=== PATIENT | female | born 1980 | race Caucasian/White ===

== ENCOUNTER → 2019-02-20 17:00 | Outpatient (ROUT) | payer OTHER, SELFPAY ==
[2019-02-20 17:10] LABS: Add Manual Diff / Slide Review NO; Basophils Absolute Auto 100 /uL (0-100); Basophils Percent Auto 0.8 % (0-2); Eosinophils Absolute Auto 0 /uL (0-450); Eosinophils Percent Auto 0.3 % (2-4); Hematocrit 40.1 % (36-46); Hemoglobin 13.8 g/dL (12.0-16.0); Lymphocytes Absolute Auto 1200 /uL (1100-4500); Lymphocytes Percent Auto 16.2 % (25-40); Mean Corpuscular HGB Conc 34.4 % (30-36); Monocytes Absolute Auto 400 /uL (0-900); Monocytes Percent Auto 5.6 % (3-14); Neutrophils Absolute Auto 5500 /uL (1500-7000); Neutrophils Percent Auto 77.1 % (50-75); Platelet Count 175 X10^3/uL (150-400); Red Blood Cell Count 4.31 X10^6/uL (4.0-5.2); Red Cell Distribution Width 13.6 % (11.6-14.8); White Blood Cell Count 7.2 X10^3/uL (4.5-11.0)
[2019-02-20 17:25] LABS: Alanine Aminotransferase 19 IU/L (9-52); Albumin 4.6 g/dL (3.5-5.0); Albumin Globulin Ratio 1.9 (1.0-2.8); Alkaline Phosphatase 83 U/L (38-126); Aspartate Aminotransferase 31 IU/L (14-36); BUN Creatinine Ratio 22.5 (6-22); Bilirubin Total 0.5 mg/dL (0.2-1.3); Blood Urea Nitrogen 18 mg/dL (7-17); Calcium 9.5 mg/dL (8.4-10.2); Carbon Dioxide 27 mmol/L (22-32); Chloride 103 mmol/L (98-107); Estimated Glomerular Filt Rate > 60.0 mL/min (>60); Globulin 2.4 g/dL (1.7-4.1); Glucose 81 mg/dL (70-100); HEMOLYSIS < 15 (0-50); Potassium 3.9 mmol/L (3.4-5.1); Sodium 142 mmol/L (137-145)
[2019-02-20 17:40] LABS: Vitamin D 25 Hydroxy (D3) 40.7 ng/mL (30.0-100.0)
[2019-02-20 17:55] LABS: Thyroid Stimulating Hormone 2.13 uIU/mL (0.47-4.68)
[2019-02-20 17:56] LABS: B Type Natriuretic Peptide < 100 (<100)
[2019-02-20 18:13] LABS: Vitamin B12 269 pg/mL (239-931)
== END ==
PROVIDERS: Visit Provider Physician Assistant
DX: R60.9 Edema, unspecified (principal); R00.2 Palpitations; E55.9 Vitamin D deficiency, unspecified
CPT/HCPCS: 80053; 82306; 82607; 83880; 84443; 85025

== ENCOUNTER → 2019-03-05 15:39 | Outpatient (CLI) | payer OTHER, SELFPAY ==
--- NOTE | 2019-03-05 | DI.ECHO.S_ITS ---
[facility] +---------+ : : [address] : [address] : : : : [id number] : : : : Phone: [phone]+ Echocardiogram Report + + :Name: MARI LEWIS Study Date: 03/05/2019 Height: 65 in : :[facility] Weight: 128 lb: : Gender: Female BSA: 1.6 m2 : :: 1980 Age: 38 yrs BP: 90/52 mmHg: :Reason For Study: PALPITATIONS : : Performed By: Laci Mckay : :Referring: ELIANE MARTINEZ : + + Interpretation Summary The ejection fraction is estimated to be 60-65%. There is mild tricuspid regurgitation. The right ventricular systolic pressure is estimated to be at least 27 mmHg based on an estimated right atrial pressure of 8 mm Hg. The IVC is dilated (diameter is greater than 2.1 cm) yet it collapses greater than 50% with a sniff. This suggests a right atrial pressure of 8 mm Hg. Procedure: A two-dimensional transthoracic echocardiogram with color flow and Doppler was performed. The study quality was technically difficult. There is no prior echocardiogram noted for this patient. The patient was in normal sinus rhythm during the exam. The patient had occasional PACs during the exam. Left Ventricle: The left ventricle is normal in size. There is normal left ventricular wall thickness. The ejection fraction is estimated to be 60-65%. There are no focal wall motion abnormalities. Right Ventricle: The right ventricle is normal in size and function. Atria: The left atrium is mildly dilated. Right atrial size is normal. The interatrial septum is intact with no evidence for an atrial septal defect. Mitral Valve: The mitral valve is normal in structure and function. There is trace mitral regurgitation. Aortic Valve: The aortic valve is trileaflet. The aortic valve opens well. No aortic regurgitation is present. Tricuspid Valve: The tricuspid valve is normal in structure and function. There is mild tricuspid regurgitation. The right ventricular systolic pressure is estimated to be at least 27 mmHg based on an estimated right atrial pressure of 8 mm Hg. Pulmonic Valve: The pulmonic valve is not well visualized. Great Vessels: The aortic root is normal size. The dimensions of the ascending aorta are normal. The pulmonary artery is normal size. The IVC is dilated (diameter is greater than 2.1 cm) yet it collapses greater than 50% with a sniff. This suggests a right atrial pressure of 8 mm Hg. Pericardium/ Pleura There is no pericardial effusion. There is no pleural effusion. MMode/2D Measurements & Calculations LVIDd: 4.3 cm LVOT diam: 1.9 cm LVIDs: 3.2 cm Ao root diam: 3.2 cm FS: 26.2 % asc Aorta Diam: 2.8 cm EPSS: 0.53 cm Ao Arch Diam (Prox Trans): 1.6 cm IVSd: 0.67 cm LVPWd: 0.65 cm LV sarabia. diameter/BSA (cm/m^2): 2.6 LV sys. diameter/BSA (cm/m^2): 2.0 LA dimension: 2.7 cm RA long axis: 4.6 cm LA A2 area: 19.2 cm2 RA area: 13.9 cm2 LA A4 area: 19.6 cm2 RA vol: 36.0 ml LA length (vol): 5.3 cm RA : 22.0 ml/m2 LA vol: 60.5 ml IVC diam: 2.2 cm LA vol index: 36.9 ml/m2 Doppler Measurements & Calculations Ao V2 max: 105.8 cm/sec LVOT Max Morris: 83.7 cm/sec Ao V2 mean: 77.6 cm/sec LV V1 max P.8 mmHg Ao max P.5 mmHg LV V1 VTI: 19.6 cm Ao mean P.6 mmHg OVIDIO(I,D): 2.2 cm2 Ao V2 VTI: 24.1 cm OVIDIO(V,D): 2.2 cm2 sev ratio: 0.81 OVIDIO indexed to BSA (cm^2/m^2): 1.4 MV E max morris: 70.4 cm/sec TR max morris: 220.5 cm/sec MV A max morris: 34.6 cm/sec TR max P.4 mmHg MV E/A: 2.0 PA V2 max: 67.3 cm/sec Med Peak E' Morris: 10.3 cm/sec PA V2 mean: 49.7 cm/sec E/E' med: 6.8 PA mean P.1 mmHg Lat Peak E' Morris: 10.5 cm/sec PA pr(Accel): 26.6 mmHg E/E' lat: 6.7 PA Accel Time: 0.09 sec E/e' average: 6.8 MV dec time: 0.17 sec SV(LVOT): 54.2 ml Reading Physician:05:07 PM
== END ==
PROVIDERS: Visit Provider Physician Assistant
DX: I07.1 Rheumatic tricuspid insufficiency (principal); R00.2 Palpitations
CPT/HCPCS: 93306

== ENCOUNTER → 2019-03-16 12:42 | Outpatient (CLI) | payer OTHER, SELFPAY ==
[2019-03-16 13:21] LABS: Lactate (Lactic Acid) 0.9 mmol/L (0.7-2.1)
== END ==
PROVIDERS: PCP Physician Assistant; Visit Provider Physician Assistant
DX: E51.9 Thiamine deficiency, unspecified (principal)
CPT/HCPCS: 36415; 83605; 84425

== ENCOUNTER → 2019-03-19 12:48 | Outpatient (CLI) | payer OTHER, SELFPAY | PROVIDERS: PCP Physician Assistant; Visit Provider Physician Assistant | DX: E51.9 Thiamine deficiency, unspecified (principal) | CPT/HCPCS: 36415; 84210 ==

== ENCOUNTER 2019-04-15 15:17 | Emergency (ER) | payer OTHER, SELFPAY ==
[2019-04-15 15:19] VITALS: BP 109/61; PULSE 56; RESP 14; TEMP 36.9; O2SAT 100
--- NOTE | 2019-04-15 16:55 | ED_ITS ---
HPI - Head Injury General Chief complaint: Head Injury Stated complaint: neck pain s/p fall on Saturday Time Seen by Provider: 04/15/19 16:30 Source: patient and family Mode of arrival: ambulatory Limitations: no limitations History of Present Illness HPI Narrative: 38-year-old female nonsmoker with benign medical history presents with headache and other concussion symptoms after hitting her head few days ago. The patient was working out and stepping up onto a box about 6 in off the ground when she fell and struck her head. She did suffer a brief loss of consciousness but quickly came to. In the aftermath she has had some headaches and felt a bit groggy, like prior concussions. She does not use alcohol or street drugs and denies the use of blood thinners. She has had no vomiting and denies any neurologic symptoms. She does have some pain on the left side of her neck which is worse with motion improves with rest. She denies any numbness, tingling or weakness. She denies any suggestion of a distracting injury. MD Complaint: head injury Onset (ago): day(s) Mechanism of Injury: fall Place: other Loss of Consciousness: yes Location of injury: parietal Severity: mild Quality: aching Radiation: none Other Injuries: none Associated symptoms: confusion and neck pain Related Data Previous Rx's Medication Instructions Recorded ketorolac 10 mg PO Q6H PRN #14 tab 04/15/19 Allergies Allergy/AdvReac Type Severity Reaction Status Date / Time spironolactone Allergy Verified 04/15/19 15:23 Review of Systems Constitutional Constitutional: Denies chills, Denies fatigue, Denies fever(s), Denies frequent falls, Reports headache(s), Denies lethargy and Denies weakness Eyes Eyes: Denies change in vision, Denies eye discharge, Denies irritation and Denies loss of vision ENT Ears, Nose, Mouth, and Throat: Denies change in voice, Denies dizziness, Reports headache(s), Reports neck pain, Denies sore throat and Denies throat swelling Cardiovascular Cardiovascular: Denies chest pain, Denies irregular heart rhythm, Denies lightheadedness, Denies palpitations, Denies dyspnea, Denies dyspnea on exertion and Denies orthopnea Respiratory Respiratory: Denies cough, Denies dyspnea, Denies dyspnea on exertion and Denies wheezing Gastrointestinal Gastrointestinal: Denies abdominal pain, Denies change in bowel habits, Denies diarrhea, Denies nausea and Denies vomiting Genitourinary Genitourinary: Denies hematuria, Denies flank pain, Denies urinary incontinence and Denies urinary urgency Musculoskeletal Musculoskeletal: Denies back pain, Denies muscle weakness, Reports neck pain, Denies numbness and Denies tingling Integumentary/Breasts Skin/Breast: Denies pruritus, Denies erythema, Denies rash and Denies wounds Neurologic Neurologic: Denies behavioral changes, Denies confusion, Denies dizziness, Denies frequent falls, Reports headache(s), Denies loss of vision, Denies numbness, Denies tingling and Denies weakness Psychiatric Psychiatric: Denies anxiety, Denies behavioral changes, Denies confusion, Denies depression, Denies homicidal ideation and Denies suicidal ideation Endocrine Endocrine: Denies fatigue, Denies flushing and Denies palpitations Hematologic/Lymphatic Hematologic/Lymphatic: Denies easy bruising Allergic/Immunologic Allergic/Immunologic: Denies urticaria, Denies throat swelling and Denies wheezing Exam Narrative Exam Narrative: GENERAL: [38] year old patient appears stated age. Well- nourished, well-developed patient, in mild distress. GCS 15 HEAD: Atraumatic. Normocephalic. EYES: Pupils equal round and reactive. Extraocular motions intact. No scleral icterus. No injection or drainage. ENT: Nose without bleeding, purulent drainage. Throat without erythema, tonsillar hypertrophy or exudate. Airway patent. NECK: Trachea midline. Tender in the paraspinal muscles on the left side her neck. No bony tenderness or step-off. CARDIOVASCULAR: Regular rate and rhythm without murmurs, gallops, or rubs. RESPIRATORY: Clear to auscultation. Breath sounds equal bilaterally. No wheezes, rales, or rhonchi. GASTROINTESTINAL: Abdomen soft, non-tender, nondistended. EXTREMITIES: Full but slightly painful range of motion of the left shoulder. No numbness, tingling or weakness. BACK: Nontender without deformity or crepitance. No flank tenderness. NEURO: AOx3. SKIN: No rash or erythema of visible areas Initial Vital Signs Initial Vital Signs: Vital Signs Temperature 98.4 F 04/15/19 15:19 Pulse Rate 56 L 04/15/19 15:19 Respiratory Rate 14 04/15/19 15:19 Blood Pressure 109/61 04/15/19 15:19 Pulse Oximetry 100 04/15/19 15:19 Scores Nexus Score for C-Spine Focal Neurologic deficit present: No Midline spinal tenderness present: No Altered level of conciousness present: No Intoxication present: No Distracting Injury Present: No Nexus Criteria for C-spine: 0 Course Course Course Narrative: [place] CT Head Injury/Trauma Rule from [employer] on 04/17/2019 All calculations should be rechecked by clinician prior to use RESULT SUMMARY: CT Unnecessary The [place] Head CT Rule suggests a head CT is not necessary for this patient (sensitivity 83-100% for all intracranial traumatic findings, sensitivity 100% for findings requiring neurosurgical intervention). INPUTS: Age ?> 0 = No Patient on blood thinners ?> 0 = No Seizure after injury ?> 0 = No GCS ?> 0 = No Suspected open or depressed skull fracture ?> 0 = No Any sign of basilar skull fracture? ?> 0 = No ?2 episodes of vomiting ?> 0 = No Age ?65 years ?> 0 = No Retrograde amnesia to the event ? 30 minutes ?> 0 = No ?Dangerous? mechanism? ?> 0 = No Vital Signs Vital signs: Vital Signs - 8 hr 04/15/19 15:19 Temperature 98.4 F Pulse Rate 56 L Respiratory Rate 14 Blood Pressure 109/61 Pulse Oximetry 100 MDM - Head Injury MDM Narrative Medical decision making narrative: Patient suffered head injury from ground level with a brief loss of consciousness and has ongoing symptoms consistent with concussion. There is no indication for imaging of head or neck based on widely use scoring system such as the [place] head CT, and nexus rules. Extensive discussion with the patient including return precautions and we had the ability to address all concerns and patients are answered to her apparent satisfaction. Discharge Plan Departure Patient Disposition: Home Clinical Impression: Cervical paraspinal muscle spasm Closed head injury Qualifiers: Encounter type: initial encounter Qualified Code(s): S09.90XA - Unspecified injury of head, initial encounter Left shoulder strain Qualifiers: Encounter type: initial encounter Qualified Code(s): S46.912A - Strain of unspecified muscle, fascia and tendon at shoulder and upper arm level, left arm, initial encounter Discharge Date/Time: 04/15/19 17:55 Instructions: Concussion Activity Restrictions/Additional Instructions: *You have been diagnosed with [concussion, left shoulder contusion and sprain, paraspinal cervical muscle spasm] *What to do: *Take medications as directed *Follow up with your primary care provider in 2-3 days, call for an appointment. Let them know you were seen in the Emergency Department and that we ask that you be seen in follow up *Return to ER if you should have any new, worsening or concerning symptoms Prescriptions: New ketorolac 10 mg tablet 10 mg PO Q6H PRN (Reason: pain) Qty: 14 RF: 0 Referrals: Zeny Ramos PA-C [Primary Care Provider] -
[2019-04-15 17:55] VITALS: BP 115/70; PULSE 55; RESP 16; O2SAT 100
== END 2019-04-15 17:55 | disposition home or self-care (01) ==
PROVIDERS: Emergency Provider Emergency Medicine; Family Provider Physician Assistant; PCP Physician Assistant
DX: M62.838 Other muscle spasm (principal); S09.90XA Unspecified injury of head, initial encounter; S46.912A Strain of unspecified muscle, fascia and tendon at shoulder and upper arm level, left arm, initial encounter; W18.30XA Fall on same level, unspecified, initial encounter
CPT/HCPCS: 99282

== ENCOUNTER → 2019-09-03 09:23 | Outpatient (CLI) | payer OTHER, SELFPAY | PROVIDERS: Family Provider Physician Assistant; PCP Physician Assistant; Referring Provider Physician Assistant; Visit Provider Physician Assistant | DX: M85.851 Other specified disorders of bone density and structure, right thigh (principal) | CPT/HCPCS: 77080 ==

== ENCOUNTER → 2019-12-30 18:41 | Outpatient (CLI) | payer OTHER, SELFPAY ==
--- NOTE | 2019-12-30 | DI.MRI.S_ITS ---
PROCEDURE: MR ANKLE LT WO CON INDICATIONS: Pain in left ankle and joints of left foot TECHNIQUE: Noncontrast sagittal T1 spin echo and T2 fast spin echo with fat saturation, axial proton density fast spin echo and T2 fast spin echo with fat saturation, coronal T1 spin echo and T2 fast spin echo with fat saturation through the ankle/hindfoot. COMPARISON: None. FINDINGS: Image quality: Excellent. Bones and joints: No bone marrow contusions or fractures. No hindfoot coalitions. No osteochondral injuries of the talar dome. No pathologic joint effusions. Medial structures: The posterior tibialis, flexor digitorum longus, and flexor hallucis longus tendons are intact. The posterior tibial neurovascular bundle appears normal within the tarsal tunnel, without extrinsic mass effect. The deep layer (anterior and posterior tibiotalar ligaments) and superficial layer (tibionavicular, tibiospring, and tibiocalcaneal ligaments) of the deltoid ligament appear normal. The spring ligament components (superomedial calcaneonavicular, medioplantar oblique calcaneonavicular, and inferoplantar longitudinal ligaments) are intact. Lateral structures: There is low-grade anterior talofibular ligament sprain/intrasubstance partial thickness tear. The calcaneofibular, and posterior talofibular ligaments appear intact. More superiorly, the anterior and posterior tibiofibular ligaments appear intact, as is the intermalleolar ligament. The tibiofibular syndesmosis is normal in width at 2 mm or less. The peroneus longus and brevis tendons demonstrate normal location and morphology. Adjacent bony peroneal tubercle and retrotrochlear prominence are normal in size. The sinus tarsi demonstrates normal fatty signal, without edema, fibrosis, or cyst formation. Visualized sinus tarsi components (cervical ligament, interosseous talocalcaneal ligament, roots of the inferior extensor retinaculum) appear normal. The calcaneonavicular and calcaneocuboid components of the bifurcate ligament appear intact. The dorsal calcaneocuboid ligament appears intact. Anterior structures: The tibialis anterior, and extensor hallucis longus tendons appear intact. Attenuated appearance of extensor digitorum longus tendon at the level of tibiotalar joint/anterior talus is seen with moderate amount of fluid distending the tendon sheath suggestive of partial thickness tendon tear and tenosynovitis. The dorsal talonavicular ligament appears intact. Posterior and plantar structures: Mildly thickened distal Achilles tendon near its insertion on the posterior calcaneus with mild surrounding edema is seen suggestive of low-grade tendinosis. No full thickness Achilles tendon rupture. Medial and lateral bands of the plantar fascia are of normal thickness. No abductor digiti quinti muscle atrophy to suggest Alberto neuropathy. IMPRESSION: 1. No marrow edema. No fracture or dislocation. No evidence of osteochondral lesions. 2. Tenosynovitis and low to moderate grade partial-thickness tear involving extensor digitorum longus tendon at the level of tibiotalar joint and anterior talus. No other tendon pathology is seen. 3. Sprain/low-grade partial-thickness tear involving anterior talofibular ligament. 4. Suggestion of mild tendinosis involving the distal Achilles tendon near its insertion on the posterior calcaneus. Dictated by: Schuyler Miramontes M.D. on 12/31/2019 at 9:31 Approved by: Schuyler Miramontes M.D. on 12/31/2019 at 9:37
== END ==
PROVIDERS: Family Provider Physician Assistant; PCP Physician Assistant; Referring Provider Orthopaedic Surgery Foot and Ankle Surgery; Visit Provider Orthopaedic Surgery Foot and Ankle Surgery
DX: M25.572 Pain in left ankle and joints of left foot (principal); M65.872 Other synovitis and tenosynovitis, left ankle and foot; S93.492A Sprain of other ligament of left ankle, initial encounter
CPT/HCPCS: 73721

== ENCOUNTER → 2020-01-18 17:57 | Outpatient (CLI) | payer OTHER, SELFPAY ==
--- NOTE | 2020-01-18 | DI.MRI.S_ITS ---
PROCEDURE: MR KNEE RT WO CON INDICATIONS: Pain in right knee TECHNIQUE: Noncontrast sagittal PD fast spin echo and T2 fast spin echo with fat saturation, sagittal 3-D FLASH with fat saturation; coronal T1 spin echo and PD fast spin echo with fat saturation, and axial PD fast spin echo with fat saturation through the knee. COMPARISON: [facility] [place], CR, XR KNEE ARTHRITIC SERIES RT, 12/17/2019, 10:09. FINDINGS: Image quality: Excellent. Menisci: Medial meniscus intact. Lateral meniscus intact. Cruciate ligaments: Anterior cruciate ligament appears intact. Posterior cruciate ligament appears intact. Medial structures: The medial collateral ligament appears intact. Semimembranosus tendon appears intact. Visualized portions of the pes anserinus tendons appear normal. Mild pes anserinus bursitis. Lateral structures: The lateral collateral ligament intact. Biceps femoris tendon appears intact. Popliteus tendon grossly unremarkable. Iliotibial band appears intact, although there is underlying edema and fluid. Anterior structures: Quadriceps tendon is thickened with T2 hyperintensity/edema. Mild thickening of the medial and lateral patellofemoral ligament and retinaculum, with adjacent soft tissue edema There is mild fluid in the deep infrapatellar recess, raising possibility of low-grade bursitis. Patellar tendon appears intact. Hoffa's fat pad unremarkable. Bones and cartilage: Mild marrow edema within the inferior patella. No discrete fracture line seen. Within the medial compartment, no focal cartilage defect. Within the lateral compartment, no focal cartilage defect. Within the patellofemoral compartment, full-thickness 1 mm cartilage defect overlying the lateral patellar facet. There is mild associated subchondral marrow edema. Elsewhere, there is diffuse surface fraying of the patellar cartilage. Femoral trochlear cartilage appears grossly intact. Joint space: Small joint effusion. No formed Baron's cyst although there is trace fluid between the semimembranosus and medial gastrocnemius tendons raising possibility of ruptured Baron cyst. No specific evidence of intra-articular loose body. IMPRESSION: Quadriceps and patellar tendinopathy, age-indeterminate. Additionally, mild thickening of the medial and lateral patellofemoral ligaments and retinaculum. Mild patellofemoral chondromalacia Small joint effusion Mild pes anserinus bursitis. Possible mild residua of ruptured Baron's cyst. Underlying fluid edema to the iliotibial band raising the possibility of iliotibial band friction syndrome although technically indeterminate. Please correlate to clinical exam findings Marrow edema within the patella, possibly marrow contusion versus reactive to chondral changes described above. Dictated by: Don Lan M.D. on 01/19/2020 at 9:33 Approved by: Don Lan M.D. on 01/19/2020 at 9:50
== END ==
PROVIDERS: Family Provider Physician Assistant; PCP Physician Assistant; Referring Provider Orthopaedic Surgery Foot and Ankle Surgery; Visit Provider Orthopaedic Surgery Foot and Ankle Surgery
DX: M25.561 Pain in right knee (principal); M25.461 Effusion, right knee; M22.41 Chondromalacia patellae, right knee; M71.561 Other bursitis, not elsewhere classified, right knee
CPT/HCPCS: 73721

== ENCOUNTER → 2020-11-14 07:01 | Outpatient (CLI) | payer OTHER, SELFPAY ==
[2020-11-14 07:52] LABS: Hematocrit 40.5 % (36-46); Hemoglobin 13.9 g/dL (12.0-16.0); Mean Corpuscular HGB Conc 34.4 % (30-36); Mean Corpuscular Hemoglobin 33.9 PG (26-34); Mean Corpuscular Volume 98.6 fL (80-100); Platelet Count 131 X10^3/uL (150-400); Red Blood Cell Count 4.11 X10^6/uL (4.0-5.2); Red Cell Distribution Width 13.1 % (11.6-14.8); White Blood Cell Count 3.2 X10^3/uL (4.5-11.0)
[2020-11-14 08:32] LABS: Follicle Stimulating Hormone 9.58 mIU/mL; Luteinizing Hormone 7.57 mIU/mL
[2020-11-14 08:36] LABS: Alanine Aminotransferase 19 IU/L (<35); Albumin 4.7 g/dL (3.5-5.0); Alkaline Phosphatase 96 U/L (38-126); Aspartate Aminotransferase 46 IU/L (14-36); BUN Creatinine Ratio 23.4 (6-22); Bilirubin Total 0.1 mg/dL (0.2-1.3); Blood Urea Nitrogen 18 mg/dL (7-17); Calcium 9.8 mg/dL (8.4-10.2); Carbon Dioxide 27 mmol/L (22-32); Chloride 104 mmol/L (98-107); Estimated Glomerular Filt Rate > 60.0 mL/min (>60); Globulin 2.4 g/dL (1.7-4.1); Glucose 82 mg/dL (70-100); HEMOLYSIS < 15 (0-50); Potassium 4.2 mmol/L (3.4-5.1); Sodium 138 mmol/L (137-145); Total Protein 7.1 g/dL (6.3-8.2)
[2020-11-14 08:58] LABS: Prolactin 13.6 ng/mL (3.0-18.6)
[2020-11-14 09:11] LABS: TSH w/ Reflex to FT4 4.45 uIU/mL (0.47-4.68)
[2020-11-14 09:14] LABS: Testosterone 43.3 ng/dL (5.71-77.0)
== END ==
PROVIDERS: Family Provider Physician Assistant; PCP Registered Nurse Diabetes Educator; Referring Provider Registered Nurse Diabetes Educator; Visit Provider Registered Nurse Diabetes Educator
DX: N91.2 Amenorrhea, unspecified (principal); R60.9 Edema, unspecified; R74.8 Abnormal levels of other serum enzymes
CPT/HCPCS: 36415; 80053; 82627; 82670; 83001; 83002; 83498; 84146; 84403; 84443; 85027

== ENCOUNTER → 2020-12-07 17:09 | Outpatient (CLI) | payer OTHER, SELFPAY ==
--- NOTE | 2020-12-07 17:12 | DI.MG.S_ITS ---
BILATERAL DIGITAL SCREENING MAMMOGRAM 3D/2D WITH CAD: 12/07/2020 CLINICAL: Routine screening. Baseline exam. No prior exams were available for comparison. The tissue of both breasts is extremely dense, which lowers the sensitivity of mammography. Current study was also evaluated with a Computer Aided Detection (CAD) system. There are segmental fine punctate calcifications in the right breast lower inner quadrant middle depth. No other significant masses, calcifications, or other findings are seen in either breast. IMPRESSION: INCOMPLETE: NEEDS ADDITIONAL IMAGING EVALUATION The segmental fine punctate calcifications in the right breast are indeterminate. Mediolateral, spot magnification, and additional views are recommended. This exam was interpreted at Station ID: [id number]. NOTE: For mammograms, a report in lay terms will be sent to the patient. Approximately 15% of breast malignancies will not be visualized mammographically. In the management of a palpable breast mass, a negative mammogram must not discourage biopsy of a clinically suspicious lesion. Electronically Signed By: Marcel Celestin M.D. ddp/:12/08/2020 07:37:06 letter sent: Additional Imaging Needed ACR BI-RADS Category 0: Incomplete [id number]
== END ==
PROVIDERS: Family Provider Physician Assistant; PCP Registered Nurse Diabetes Educator; Referring Provider Registered Nurse Diabetes Educator; Visit Provider Registered Nurse Diabetes Educator
DX: Z12.31 Encounter for screening mammogram for malignant neoplasm of breast (principal)
CPT/HCPCS: 77063; 77067

== ENCOUNTER → 2020-12-14 13:41 | Outpatient (CLI) | payer OTHER, SELFPAY ==
[2020-12-14 15:38] LABS: Erythrocyte Sedimentation Rate 4 MM/HR (0-20)
[2020-12-14 15:39] LABS: HEMOLYSIS < 15 (0-50); Iron 77 ug/dL (37-170)
[2020-12-14 15:51] LABS: Percent Iron Saturation 18 % (15-50); Total Iron Binding Capacity 427 ug/dL (265-497); Transferrin 338 mg/dL (206-381)
[2020-12-14 15:53] LABS: C-Reactive Protein Quant < 0.5 mg/dL (<1.0)
[2020-12-14 16:18] LABS: Ferritin 13 ng/mL (6-137)
[2020-12-15 04:58] LABS: Alpha 1 Anti Trypsin 127 mg/dL (100-188)
[2020-12-15 07:04] LABS: Hepatitis B Core AB w/Reflex Negative (Negative)
[2020-12-15 16:33] LABS: Hepatitis B Surface Antigen NEGATIVE s/c (NEGATIVE)
[2020-12-15 16:43] LABS: Hep C Virus Ab w/Reflex Quant NEGATIVE s/c (NEGATIVE)
[2020-12-15 19:36] LABS: Deamidated Gliadin Ab IgA 3 units (0-19); Deamidated Gliadin Ab IgG 2 units (0-19); Immunoglobulin A,Qn 137 mg/dL (87-352); t-Transglutaminase IgA <2 U/mL (0-3)
[2020-12-16 13:15] LABS: Smooth Muscle Antibody 4 Units (0-19)
[2020-12-16 13:36] LABS: ANA Screen, IFA Negative (.)
== END ==
PROVIDERS: Family Provider Physician Assistant; PCP Registered Nurse Diabetes Educator; Referring Provider Registered Nurse Diabetes Educator; Visit Provider Registered Nurse Diabetes Educator
DX: D69.6 Thrombocytopenia, unspecified (principal); R74.8 Abnormal levels of other serum enzymes; M79.645 Pain in left finger(s)
CPT/HCPCS: 36415; 82103; 82390; 82728; 82784; 83516; 83540; 83550; 85651; 86038; 86140; 86704; 86803; 87340

== ENCOUNTER → 2020-12-23 14:09 | Outpatient (CLI) | payer OTHER, SELFPAY ==
--- NOTE | 2020-12-23 | DI.MG.S_ITS ---
UNILATERAL RIGHT DIGITAL DIAGNOSTIC MAMMOGRAM 3D/2D WITH ADDITIONAL VIEWS: 12/23/2020 CLINICAL: Additional evaluation requested from prior study. Comparison is made to exam dated: 12/07/2020 [facility]. The tissue of right breast is extremely dense, which lowers the sensitivity of mammography. There are 1.1 cm grouped fine punctate calcifications in the right breast at 5 o'clock middle depth. No other significant masses or calcifications are seen in the breast. IMPRESSION: SUSPICIOUS OF MALIGNANCY The 1.1 cm grouped fine punctate calcifications in the right breast are at a moderate suspicion for malignancy. A stereotactic biopsy is recommended. Exam findings were discussed with the patient by Dr. Anival Armenta. This exam was interpreted at Station ID: [id number]. NOTE: For mammograms, a report in lay terms will be sent to the patient. Approximately 15% of breast malignancies will not be visualized mammographically. In the management of a palpable breast mass, a negative mammogram must not discourage biopsy of a clinically suspicious lesion. Electronically Signed By: Anthony James M.D. [facility]/:12/23/2020 14:37:27 letter sent: Biopsy Required ACR BI-RADS Category 4b: Suspicious abnormality - intermediate suspicion of malignancy [id number]
== END ==
PROVIDERS: Family Provider Physician Assistant; PCP Registered Nurse Diabetes Educator; Referring Provider Registered Nurse Diabetes Educator; Visit Provider Registered Nurse Diabetes Educator
DX: R92.8 Other abnormal and inconclusive findings on diagnostic imaging of breast (principal); R92.1 Mammographic calcification found on diagnostic imaging of breast
CPT/HCPCS: 77065; G0279

== ENCOUNTER 2021-01-20 18:28 | Emergency (ER) | payer OTHER, SELFPAY ==
[2021-01-20 18:34] VITALS: BP 121/69; PULSE 53; RESP 14; TEMP 36.4; O2SAT 99; BMI 19.6
[2021-01-20] MEDS: TET,DIPH,PERTUSS(ACELL),VAC/PF 0.5 ML SYRINGE IM (22:53)
[2021-01-20 23:07] VITALS: PULSE 40; RESP 16; O2SAT 100
--- NOTE | 2021-01-20 23:57 | ED.WOUNDLAC ---
HPI - Wound/Laceration General Chief Complaint: Wound/Laceration Stated Complaint: cut finger on left hand Time Seen by Provider: 01/20/21 23:05 Source: patient Mode of arrival: Ambulatory Limitations: no limitations History of Present Illness HPI narrative: 40-year-old female nonsmoker with noncontributory medical history presents with the chief complaint of an accidental laceration to the tip of her Left index finger. She was using a sharp knife preparing vegetables for dinner when it slipped and lacerated the tip of her finger through the nail. It bled a fair amount and cause significant pain prior to arrival. She denies any numbness or tingling. Her tetanus will need to be updated. She is otherwise well and free of complaint Onset (ago): minute(s) Place: home Patient tetanus UTD: No Context: accidental Associated symptoms: none Treatments prior to arrival: bandage Related Data Home Medications Medication Instructions Recorded Confirmed cbd oil PO 11/07/20 01/05/21 Allergies Allergy/AdvReac Type Severity Reaction Status Date / Time spironolactone Allergy Anaphylaxis, Verified 01/20/21 18:36 right side of body falls asleep Review of Systems Constitutional Constitutional: Denies chills, Denies fatigue, Denies fever(s), Denies frequent falls, Denies lethargy and Denies weakness Eyes Eyes: Denies change in vision, Denies eye discharge, Denies irritation and Denies loss of vision ENT Ears, Nose, Mouth, and Throat: Denies change in voice, Denies dizziness, Denies neck pain, Denies sore throat and Denies throat swelling Cardiovascular Cardiovascular: Denies chest pain, Denies irregular heart rhythm, Denies lightheadedness, Denies palpitations, Denies dyspnea, Denies dyspnea on exertion and Denies orthopnea Respiratory Respiratory: Denies cough, Denies dyspnea, Denies dyspnea on exertion and Denies wheezing Gastrointestinal Gastrointestinal: Denies abdominal pain, Denies change in bowel habits, Denies diarrhea, Denies nausea and Denies vomiting Musculoskeletal Musculoskeletal: Denies neck pain and Denies numbness Integumentary/Breasts Skin/Breast: Denies pruritus, Denies erythema, Denies rash and Reports wounds Neurologic Neurologic: Denies behavioral changes, Denies confusion, Denies dizziness, Denies frequent falls, Denies loss of vision, Denies numbness and Denies weakness Psychiatric Psychiatric: Denies anxiety, Denies behavioral changes, Denies confusion, Denies depression, Denies homicidal ideation and Denies suicidal ideation Endocrine Endocrine: Denies fatigue, Denies flushing and Denies palpitations Hematologic/Lymphatic Hematologic/Lymphatic: Denies easy bruising Allergic/Immunologic Allergic/Immunologic: Denies urticaria, Denies throat swelling and Denies wheezing Patient History Medical History Acne (~1994) Amenorrhea (~2013) Ankle pain (~2019) Chicken pox Edema Foot pain (~2009) Fractures (~1988) Gastric ulcer (~2017) GERD (gastroesophageal reflux disease) (~2017) Herniated disc (~2014) Herpes (~1998) Irregular menstrual cycle (~2013) Irritable bowel syndrome (~2014) Osteopenia (~2015) Pituitary adenoma (~2015) Plantar warts (~1998) Vertigo (~2019) Surgical History Anesthesia History of section (~12/20/07) History of colonoscopy History of removal of skin mole (~08/2008) Family History Father Melanoma Mother Autoimmune disease Mental health problem Depression Brother Asthma Sister Mental health problem Eating disorder Anxiety Grandfather History of heart disease Hyperlipidemia Hypertension Mental health problem Grandmother Multiple sclerosis Family/Other ADHD Anxiety Social History Smoking Status: Never smoker Smoking Status: Never smoker alcohol intake frequency: holidays/special occasions only Substance Use Type: does not use Exam Narrative Exam Narrative: GEN: AOx3 and in mild distress EYES: Pupils are equal, round, and reactive to light and accommodation. Extraoccular muscles are intact bilaterally. There is no subconjunctival hemorrhage or exudate. CHEST: Lungs are clear to auscultation bilaterally and free of wheezes, rales, or rhonchi. Heart rate is regular rhythm, there are no murmurs, clicks, rubs, or gallops. There is no chest wall tenderness. ABD: Abdomen is soft and nontender. There is no guarding or rebound. Bowel sounds are normal in all 4 quadrants. There is no mass or organomegaly. EXT: Laceration through the nail of left index finger, no active bleeding, no numbness or tingling. Full painless ROM of all extremities with no loss of sensation or strength. SKIN: Warm, pink, and dry. No erythema or rash Initial Vital Signs Initial Vital Signs: Vital Signs Temperature 97.5 F L 01/20/21 18:34 Pulse Rate 53 L 01/20/21 18:34 Respiratory Rate 14 01/20/21 18:34 Blood Pressure 121/69 01/20/21 18:34 Pulse Oximetry 99 01/20/21 18:34 Course Orders Ordered: Discontinued Medications Diphtheria/Tetanus/Acell Pertussis (Tet,Diph,Pertuss(Acell),Vac/Pf 0.5 Ml Syringe) 0.5 ml IM .ONCE ONE Stop: 01/20/21 18:39 Last Admin: 01/20/21 22:53 Dose: 0.5 ml Documented by: CTRSUSANA Vital Signs Vital signs: Vital Signs - 8 hr 01/20/21 23:07 01/21/21 00:22 Pulse Rate 40 L 40 L Respiratory Rate 16 16 Blood Pressure 93/56 L Pulse Oximetry 100 100 MDM - Wound/Laceration MDM Narrative Medical decision making narrative: laceration is through nail and likely involved the nail bed, it bled earlier but after pressure is no longer bleeding. There is no other need for repair. We discussed at length the lack of indication for suture or nail removal at this point. She has no numbness, tingling or weakness. She has been given return precautions and has had questions answered Discharge Plan Departure Patient Disposition: Home Clinical Impression: Laceration Instructions: DI for Nail Bed Injury Activity Restrictions/Additional Instructions: *You have been diagnosed with [left index finger with nail and nail bed injury, bleeding controlled, no need for repair currently] *What to do: *Please continue to take your regular medications as directed. [ ] New medication prescriptions sent to your pharmacy: [ ] [ ] New medication written as a paper prescription [ x] No new medications given *Please follow up with your primary care provider in 2-3 days, call for an appointment. Let them know you were seen in the Emergency Department and that we ask that you be seen in follow up. We will electronically transmit a record of today's note if your PCP is in our system *If you do not have a primary care provider please contact the [facility] Resource line at [phone]. They will ask some questions about your medical history and help get you set up with a doctor in the community. *Return to Emergency Department if you should have any new, worsening or concerning symptoms, such as [fever greater than 101 F, shaking chills, worsening pain, recurrence of heavy bleeding or other bothersome symptoms Prescriptions: No Action cbd oil PO RF: 0 Referrals: Prince Wheeler ARNP [Primary Care Provider] -
[2021-01-21 00:22] VITALS: BP 93/56; PULSE 40; RESP 16; O2SAT 100
== END 2021-01-21 00:23 | disposition home or self-care (01) ==
PROVIDERS: Emergency Provider Emergency Medicine; Family Provider Physician Assistant; PCP Registered Nurse Diabetes Educator
DX: S61.211A Laceration without foreign body of left index finger without damage to nail, initial encounter (principal); W26.0XXA Contact with knife, initial encounter; Z23 Encounter for immunization
CPT/HCPCS: 90471; 99283; 90715

== ENCOUNTER 2021-03-24 15:15 | Emergency (ER) | payer OTHER, SELFPAY ==
[2021-03-24 15:19] VITALS: BP 131/69; PULSE 46; RESP 14; TEMP 36.6; O2SAT 100; BMI 19.3
--- NOTE | 2021-03-24 15:28 | DI.RAD.S_ITS ---
PROCEDURE: XR FOOT RT MIN 3V INDICATIONS: Stubbed 4th toe right foot, also having top of foot pain TECHNIQUE: 3 views of the foot were acquired. COMPARISON: None. FINDINGS: Bones: No fractures or dislocations. No suspicious bony lesions. Soft tissues: No tibiotalar joint effusion. Achilles tendon appears normal. IMPRESSION: Source of pain after trauma is not seen. Mild soft tissue swelling 4th distal phalanx area. Dictated by: Anival Armenta M.D. on 03/24/2021 at 15:56 Approved by: Anival Armenta M.D. on 03/24/2021 at 15:57
--- NOTE | 2021-03-24 17:01 | ED_ITS ---
HPI - Extremity Injury (Lower) <Kali Saunders PA-C - Last Filed: 03/25/21 12:18> General Chief Complaint: Extremity Injury, Lower Stated Complaint: Stubbed Rt Toe Time Seen by Provider: 03/24/21 16:48 Source: patient Mode of arrival: Ambulatory Limitations: no limitations History of Present Illness HPI Narrative: Tahmina presents today with chief complaint toe pain on her right foot. She was exercising earlier today and dropped a dumbbell directly onto her foot. She has had significant pain with any weight-bearing activity since then and notes that it has started to get swollen and bruised. She denies any other previous injuries to the area. She has no other acute concerns or complaints at this time Related Data Home Medications Medication Instructions Recorded Confirmed cbd oil PO 11/07/20 01/05/21 Allergies Allergy/AdvReac Type Severity Reaction Status Date / Time spironolactone Allergy Anaphylaxis, Verified 01/20/21 18:36 right side of body falls asleep Review of Systems <Kali Saunders PA-C - Last Filed: 03/25/21 12:18> Review of Systems Narrative: As per HPI Patient History <Kali Saunders PA-C - Last Filed: 03/25/21 12:18> Medical History Acne (~1994) Amenorrhea (~2013) Ankle pain (~2019) Chicken pox Edema Foot pain (~2009) Fractures (~1988) Gastric ulcer (~2017) GERD (gastroesophageal reflux disease) (~2017) Herniated disc (~2014) Herpes (~1998) Irregular menstrual cycle (~2013) Irritable bowel syndrome (~2014) Osteopenia (~2015) Pituitary adenoma (~2015) Plantar warts (~1998) Vertigo (~2019) Surgical History Anesthesia History of section (~12/20/07) History of colonoscopy History of removal of skin mole (~08/2008) Family History Father Melanoma Mother Autoimmune disease Mental health problem Depression Brother Asthma Sister Mental health problem Eating disorder Anxiety Grandfather History of heart disease Hyperlipidemia Hypertension Mental health problem Grandmother Multiple sclerosis Family/Other ADHD Anxiety Social History Smoking Status: Never smoker Smoking Status: Never smoker alcohol intake frequency: holidays/special occasions only Substance Use Type: does not use Exam <Kali Saunders PA-C - Last Filed: 03/25/21 12:18> Narrative Exam Narrative: Exam Narrative: Const General: cooperative, healthy appearing, comfortable, no acute distress, well developed and well groomed Nutritional Appearance: average body habitus Orientation: alert and oriented x3 HENMT Head: normal to inspection and atraumatic Ears: hearing grossly normal bilaterally Nose: external nose normal and nares normal Face and sinus: normal facial exam Neck Neck: normal visual inspection and supple Resp Effort & Inspection: normal respiratory effort, able to speak in complete sentences, no audible wheezes, not labored, no nasal flaring and no respiratory distress Neuro General: alert, oriented x3, limping normal, tone normal and moves all extremities Cognition: normal cognition Speech: speech normal Gait: Limping gait Extremities Lower extremities evaluated. She has tenderness to palpation, decreased range of motion and swelling noted to the proximal aspect of her right 4th toe. There is overlying bruising noted. Capillary refill is normal. Skin is intact. Psych Appearance: grossly normal and well kempt Mental Status: mental status grossly normal Speech and Movement: speech and movement normal Mood: congruent mood Affect: normal affect Initial Vital Signs Initial Vital Signs: Vital Signs Temperature 97.8 F 03/24/21 15:19 Pulse Rate 46 L 03/24/21 15:19 Respiratory Rate 14 03/24/21 15:19 Blood Pressure 131/69 03/24/21 15:19 Pulse Oximetry 100 03/24/21 15:19 <Briana Austin DO - Last Filed: 03/29/21 07:40> Initial Vital Signs Initial Vital Signs: Vital Signs Temperature 97.8 F 03/24/21 15:19 Pulse Rate 46 L 03/24/21 15:19 Respiratory Rate 14 03/24/21 15:19 Blood Pressure 131/69 03/24/21 15:19 Pulse Oximetry 100 03/24/21 15:19 Course <Kali Saunders PA-C - Last Filed: 03/25/21 12:18> Orders Ordered: ED Orders 03/24/21 15:28 XR foot RT min 3V Stat Vital Signs Vital signs: Vital Signs - 8 hr 03/24/21 15:19 Temperature 97.8 F Pulse Rate 46 L Respiratory Rate 14 Blood Pressure 131/69 Pulse Oximetry 100 <Brianabrandon AustinDO - Last Filed: 03/29/21 07:40> Orders Ordered: ED Orders 03/24/21 15:28 XR foot RT min 3V Stat Vital Signs Vital signs: Vital Signs - 8 hr 03/24/21 15:19 Temperature 97.8 F Pulse Rate 46 L Respiratory Rate 14 Blood Pressure 131/69 Pulse Oximetry 100 MDM - Extremity Injury (Lower) <Kali Saunders PA-C - Last Filed: 03/25/21 12:18> MDM Narrative Medical decision making narrative: Differential diagnosis includes fracture, dislocation, contusion, hematoma. I suspect that she has a right 4th proximal metatarsal fracture. Radiology reports that this is normal at this time. However, she has significant tenderness to this area and convincing x-ray to suggest a fracture. We will have her follow up with her PCP and a referral will be placed to podiatry. Recommend alternating between acetaminophen or ibuprofen as needed for pain management. Also elevation and application of ice is appropriate. Return precautions were discussed. Patient verbalizes understanding and agrees to plan and has no further concerns at this time. Thank you A [id number] system was used with the dictation of this note. Please disregard any spelling or grammatical errors. Discharge Plan Departure Patient Disposition: Home Clinical Impression: Closed fracture of fourth metatarsal bone Qualifiers: Encounter type: initial encounter Fracture alignment: nondisplaced Laterality: right Qualified Code(s): S92.344A - Nondisplaced fracture of fourth metatarsal bone, right foot, initial encounter for closed fracture Instructions: DI for Toe Fracture Activity Restrictions/Additional Instructions: It was very nice to meet you this evening. Please keep your foot in the surgical shoe to prevent any further injury at this time. You can alternate between acetaminophen or ibuprofen as needed for pain management. Also recommend application of ice and elevation to help decrease swelling. Please give the ict trainer a call on Saturday to schedule a follow-up appointment. If you experience significant worsening pain or any other acute concerns or complaints do not hesitate to return for re-evaluation. Thank you Kali Saunders PA-C Prescriptions: No Action cbd oil PO RF: 0 Referrals: Rashida Palma DPM [Physician] - 3-5 days Prince Wheeler ARNP [Primary Care Provider] - <Briana Austin DO - Last Filed: 03/29/21 07:40> Cosign ED Attending Cosignature Attestation: I was immediately available in the department for consultation. Documentation has been reviewed. Imaging was reviewed and I agree that there does appear to be fracture of the proximal phalanx of the 4th toe.
[2021-03-24 17:22] VITALS: BP 125/80; PULSE 46; RESP 18; O2SAT 98
== END 2021-03-24 17:23 | disposition home or self-care (01) ==
PROVIDERS: Emergency Provider Physician Assistant; Family Provider Physician Assistant; PCP Registered Nurse Diabetes Educator
DX: S92.344A Nondisplaced fracture of fourth metatarsal bone, right foot, initial encounter for closed fracture (principal); W22.8XXA Striking against or struck by other objects, initial encounter
CPT/HCPCS: 73630; 99281; 99283

== ENCOUNTER → 2021-12-02 10:48 | Outpatient (CLI) | payer OTHER, SELFPAY ==
[2021-12-02 12:29] LABS: Add Manual Diff / Slide Review NO; Basophils Absolute Auto 0 /uL (0-100); Basophils Percent Auto 0.9 % (0-2); Eosinophils Absolute Auto 0 /uL (0-450); Eosinophils Percent Auto 0.4 % (2-4); Hematocrit 39.7 % (36-46); Hemoglobin 13.7 g/dL (12.0-16.0); Lymphocytes Absolute Auto 600 /uL (1100-4500); Mean Corpuscular HGB Conc 34.5 % (30-36); Mean Corpuscular Hemoglobin 33.6 PG (26-34); Mean Corpuscular Volume 97.5 fL (80-100); Monocytes Absolute Auto 200 /uL (0-900); Monocytes Percent Auto 5.6 % (3-14); Neutrophils Absolute Auto 3200 /uL (1500-7000); Neutrophils Percent Auto 79.1 % (50-75); Platelet Count 186 X10^3/uL (150-400); Red Blood Cell Count 4.07 X10^6/uL (4.0-5.2); Red Cell Distribution Width 12.6 % (11.6-14.8); White Blood Cell Count 4.1 X10^3/uL (4.5-11.0)
[2021-12-02 12:44] LABS: Alanine Aminotransferase 18 IU/L (<35); Albumin Globulin Ratio 1.9 (1.0-2.8); Alkaline Phosphatase 107 U/L (38-126); Aspartate Aminotransferase 41 IU/L (14-36); BUN Creatinine Ratio 25.4 (6-22); Bilirubin Total 0.3 mg/dL (0.2-1.3); Blood Urea Nitrogen 18 mg/dL (7-17); Calcium 9.3 mg/dL (8.4-10.2); Carbon Dioxide 26 mmol/L (22-32); Chloride 107 mmol/L (98-107); Cholesterol 166 mg/dL (140-199); Estimated Glomerular Filt Rate > 60 mL/min (>60); Globulin 2.6 g/dL (1.7-4.1); Glucose 84 mg/dL (70-100); HDL Cholesterol 95 mg/dL (40-60); HEMOLYSIS < 15 (0-50); LDL Cholesterol Calculated 61 mg/dL (<100); Potassium 4.5 mmol/L (3.4-5.1); Sodium 141 mmol/L (137-145); Total Protein 7.6 g/dL (6.3-8.2); Triglycerides 52 mg/dL (35-150)
[2021-12-05 15:16] LABS: Almond IgE <0.10 kU/L (Class 0); Cashew Nut IgE <0.10 kU/L (Class 0); Codfish Allergy IgE < 0.10 kU/L (Class 0); Egg White IgE <0.10 kU/L (Class 0); Hazelnut IgE <0.10 kU/L (Class 0); Milk IgE <0.10 kU/L (Class 0); Peanut IgE <0.10 kU/L (Class 0); Salmon Allergy IgE < 0.10 kU/L (Class 0); Scallop Allergy IgE < 0.10 kU/L (Class 0); Sesame seed Allergy IgE < 0.10 kU/L (Class 0); Shrimp IgE 0.32 kU/L (Class I); Soybean IgE <0.10 kU/L (Class 0); Tuna Allergy IgE < 0.10 kU/L (Class 0); Walnut IgE <0.10 kU/L (Class 0); Wheat Allergy IgE < 0.10 kU/L (Class 0)
[2021-12-06 04:42] LABS: Alder IgE <0.10 kU/L (Class 0); Alternaria alternata IgE <0.10 kU/L (Class 0); Aspergillus fumigatus IgE <0.10 kU/L (Class 0); Box Elder IgE <0.10 kU/L (Class 0); Cladosporium herbarum IgE <0.10 kU/L (Class 0); Cockroach IgE 0.51 kU/L (Class I); Cottonwood IgE <0.10 kU/L (Class 0); D farinae IgE 0.16 kU/L (Class 0/I); D pteronyssinus IgE 0.16 kU/L (Class 0/I); Dog Dander IgE <0.10 kU/L (Class 0); Elm Tree IgE <0.10 kU/L (Class 0); Immunoglobulin E 88 IU/mL (6-495); Mountain Cedar IgE <0.10 kU/L (Class 0); Mouse Urine Proteins IgE <0.10 kU/L (Class 0); Nettle IgE <0.10 kU/L (Class 0); Oak Tree IgE <0.10 kU/L (Class 0); Penicillium chrysogen IgE <0.10 kU/L (Class 0); Pigweed, Common IgE <0.10 kU/L (Class 0); Ragweed, Short <0.10 kU/L (Class 0); Sheep Sorrel IgE <0.10 kU/L (Class 0); Silver Birch IgE <0.10 kU/L (Class 0); Timothy Grass IgE <0.10 kU/L (Class 0); Walnut Allery IgE < 0.10 kU/L (Class 0); White ash IgE <0.10 kU/L (Class 0)
[2021-12-06 15:11] LABS: Cat Dander IgE <0.10
== END ==
PROVIDERS: Family Provider Physician Assistant; PCP Registered Nurse Diabetes Educator; Referring Provider Registered Nurse Diabetes Educator; Visit Provider Registered Nurse Diabetes Educator
DX: K58.9 Irritable bowel syndrome, unspecified (principal); M85.80 Other specified disorders of bone density and structure, unspecified site; N91.2 Amenorrhea, unspecified; R60.9 Edema, unspecified; R80.9 Proteinuria, unspecified; Z13.220 Encounter for screening for lipoid disorders
CPT/HCPCS: 36415; 80053; 80061; 82785; 84443; 85025; 86003

== ENCOUNTER → 2021-12-05 13:04 | Outpatient (CLI) | payer OTHER, SELFPAY ==
[2021-12-05 14:11] LABS: Appearance Urine UA CLEAR; Bilirubin Urine UA NEGATIVE (NEGATIVE); Color Urine UA YELLOW; Glucose Urine UA NEGATIVE (Negative); Ketones Urine UA NEGATIVE (NEGATIVE); Leukocyte Esterase Urine UA NEGATIVE (NEGATIVE); Nitrite Urine UA NEGATIVE (Negative); Occult Blood Urine UA NEGATIVE (Negative); Protein Urine UA NEGATIVE (Negative); Urobilinogen Urine UA 0.2 E.U./dL (0.2)
[2021-12-05 14:14] LABS: pH Urine UA 5.5 (4.5-8.0)
[2021-12-05 14:18] LABS: Bacteria Urine None Seen; Culture Indicated Urine Cult Not Indicated; RBC Urine 0-1/HPF (0-5/HPF); Squamous Epithelial Cell Urine 1-5 /HPF (0-5/HPF); WBC Urine None Seen (0-5/HPF)
[2021-12-05 15:17] LABS: Creatinine Urine Random 110.2 mg/dL
[2021-12-05 15:20] LABS: Microalbumi Creatinin Ratio Ur 10.8 ug/mg CR (<30); Microalbumin Urine Random 1.2 mg/dL (0-1.6)
== END ==
PROVIDERS: Family Provider Physician Assistant; PCP Registered Nurse Diabetes Educator; Referring Provider Registered Nurse Diabetes Educator; Visit Provider Registered Nurse Diabetes Educator
DX: M85.80 Other specified disorders of bone density and structure, unspecified site (principal); N91.2 Amenorrhea, unspecified; R60.9 Edema, unspecified; K58.9 Irritable bowel syndrome, unspecified; R80.9 Proteinuria, unspecified
CPT/HCPCS: 81001; 82043; 82570

== ENCOUNTER → 2022-01-02 15:03 | Outpatient (CLI) | payer OTHER, SELFPAY | PROVIDERS: Family Provider Physician Assistant; PCP Registered Nurse Diabetes Educator; Referring Provider Registered Nurse Diabetes Educator; Visit Provider Registered Nurse Diabetes Educator | DX: Z09 Encounter for follow-up examination after completed treatment for conditions other than malignant neoplasm; Z87.311 Personal history of (healed) other pathological fracture | CPT/HCPCS: 77080 ==

== ENCOUNTER → 2022-02-02 14:28 | Outpatient (CLI) | payer OTHER, SELFPAY ==
[2022-02-02 16:15] LABS: Free T3, Triiodothyronine Free 2.29 pg/mL (2.77-5.27); Free T4, Direct Thyroxine 0.98 ng/dL (0.78-2.19)
[2022-02-06 15:15] LABS: Follicle Stimulating Hormone 6.22 mIU/mL
[2022-02-08 12:29] LABS: Triiodothyronine T3 Reverse 18.5 ng/dL (9.2-24.1)
== END ==
PROVIDERS: Family Provider Physician Assistant; PCP Registered Nurse Diabetes Educator; Referring Provider Obstetrics & Gynecology; Visit Provider Obstetrics & Gynecology
DX: N91.2 Amenorrhea, unspecified (principal)
CPT/HCPCS: 36415; 83001; 83002; 84439; 84481; 84482

== ENCOUNTER → 2022-06-08 15:06 | Outpatient (CLI) | payer OTHER, SELFPAY ==
--- NOTE | 2022-06-08 15:07 | DI.MG.S_ITS ---
BILATERAL DIGITAL SCREENING MAMMOGRAM 3D/2D WITH CAD: 06/08/2022 CLINICAL: Routine screening. Comparison is made to exams dated: 12/23/2020 mammogram and 12/07/2020 mammogram - [facility]. Both breasts are extremely dense, which lowers the sensitivity of mammography (category d />75% glandular tissue). Current study was also evaluated with a Computer Aided Detection (CAD) system. There are benign calcifications in the right breast. There also is a biopsy clip in the right breast. No significant masses, calcifications, or other findings are seen in either breast. There has been no significant interval change. IMPRESSION: BENIGN There is no mammographic evidence of malignancy. A 1 year screening mammogram is recommended. This exam was interpreted at Station ID: [id number]. NOTE: For mammograms, a report in lay terms will be sent to the patient. Approximately 15% of breast malignancies will not be visualized mammographically. In the management of a palpable breast mass, a negative mammogram must not discourage biopsy of a clinically suspicious lesion. Electronically Signed By: Morgan pedersen/cyn:06/08/2022 17:44:31 letter sent: Normal Exam ACR BI-RADS Category 2: Benign Finding(s) 3342F
== END ==
PROVIDERS: Family Provider Physician Assistant; PCP Registered Nurse Diabetes Educator; Referring Provider Registered Nurse Diabetes Educator; Visit Provider Registered Nurse Diabetes Educator
DX: Z12.31 Encounter for screening mammogram for malignant neoplasm of breast (principal)
CPT/HCPCS: 77063; 77067

== ENCOUNTER → 2022-06-26 08:17 | Outpatient (CLI) | payer OTHER, SELFPAY ==
[2022-06-26 10:17] LABS: Alanine Aminotransferase 20 IU/L (<35); Albumin 4.4 g/dL (3.5-5.0); Albumin Globulin Ratio 1.9 (1.0-2.8); Alkaline Phosphatase 97 U/L (38-126); Aspartate Aminotransferase 34 IU/L (14-36); BUN Creatinine Ratio 32.7 (6-22); Bilirubin Total 0.2 mg/dL (0.2-1.3); Blood Urea Nitrogen 17 mg/dL (7-17); Calcium 9.1 mg/dL (8.4-10.2); Carbon Dioxide 25 mmol/L (22-32); Chloride 105 mmol/L (98-107); Estimated Glomerular Filt Rate > 60 mL/min (>60); Globulin 2.3 g/dL (1.7-4.1); Glucose 90 mg/dL (70-100); HEMOLYSIS < 15 (0-50); Potassium 4.1 mmol/L (3.4-5.1); Sodium 137 mmol/L (137-145); Total Protein 6.7 g/dL (6.3-8.2)
[2022-06-26 10:35] LABS: Prolactin 8.2 ng/mL (3.0-18.6)
[2022-06-26 10:37] LABS: Free T3, Triiodothyronine Free 2.35 pg/mL (2.77-5.27); Free T4, Direct Thyroxine 1.02 ng/dL (0.78-2.19)
[2022-06-26 10:48] LABS: Cortisol AM (Before 10AM) 16.1 ug/dL (4.46-22.7)
[2022-06-26 10:50] LABS: Thyroid Stimulating Hormone 1.93 uIU/mL (0.47-4.68)
[2022-06-28 06:36] LABS: Adrenocorticotropic Hormone 73.8 pg/mL (7.2-63.3)
[2022-06-29 05:11] LABS: IGF-1 151 ng/mL (74-239)
== END ==
PROVIDERS: Family Provider Physician Assistant; PCP Registered Nurse Diabetes Educator; Referring Provider Registered Nurse Diabetes Educator; Visit Provider Registered Nurse Diabetes Educator
DX: D35.2 Benign neoplasm of pituitary gland (principal); R79.89 Other specified abnormal findings of blood chemistry; R74.01 Elevation of levels of liver transaminase levels
CPT/HCPCS: 36415; 80053; 82024; 82533; 84146; 84305; 84439; 84443; 84481

== ENCOUNTER → 2022-06-28 15:56 | Outpatient (CLI) | payer OTHER, SELFPAY ==
[2022-07-13 20:07] LABS: Cortisol Fr ug/24hr urine 39 ug/24 hr (6-42); Cortisol, Free, Urine 13 ug/L (Undefined)
== END ==
PROVIDERS: Family Provider Physician Assistant; PCP Registered Nurse Diabetes Educator; Referring Provider Registered Nurse Diabetes Educator; Visit Provider Registered Nurse Diabetes Educator
DX: D35.2 Benign neoplasm of pituitary gland (principal); R79.9 Abnormal finding of blood chemistry, unspecified
CPT/HCPCS: 82530

== ENCOUNTER → 2022-07-10 16:41 | Outpatient (CLI) | payer OTHER, SELFPAY ==
--- NOTE | 2022-07-10 16:43 | DI.MRI.S_ITS ---
PROCEDURE: MR BRAIN (PITUITARY) WWO CON INDICATIONS: reeval hx pituitary micro- and macro-adenomas TECHNIQUE: Noncontrast sagittal and axial FLAIR, axial gradient echo, axial diffusion and ADC through the brain. Thin-slice sagittal and coronal T1 spin echo, coronal T2 fast spin echo through the pituitary. After the administration contrast, optional dynamic coronal T1 spin echo, thin-slice coronal and sagittal T1 spin echo images through the pituitary fossa; axial and coronal and sagittal T1 spin echo with fat saturation through the brain. COMPARISON: None. FINDINGS: Image quality: Excellent. Sellar region: No enlargement of the sella turcica or pituitary gland. Normal T1 shortening in the neurohypophysis. There is a nonenhancing approximately 5 mm pars intermedius cyst the in the posterior adenohypophysis near the junction of the adenohypophysis and neurohypophysis. No abnormal enhancement of the pituitary parenchyma to suggest an adenoma. Suprasellar structures normal in appearance. CSF Spaces: Ventricles are normal in size and shape. Basal cisterns are patent. No extra-axial fluid collections. Brain: No intracranial bleeds or mass effects. No abnormal intracranial enhancement. Cosme-white matter interface is intact. Diffusion weighted images demonstrate no acute ischemic insults. Brainstem is normal. Normal intravascular flow voids are present. Skull and face: Calvarial marrow is normal in signal. Orbits appear normal. Sinuses: Sinuses and mastoids are clear. IMPRESSION: Approximately 5 mm nonenhancing pars intermedius cyst. Otherwise normal pituitary. Dictated by: Teddy Daly M.D. on 07/11/2022 at 8:29 Approved by: Teddy Daly M.D. on 07/11/2022 at 8:33
== END ==
PROVIDERS: Family Provider Physician Assistant; PCP Registered Nurse Diabetes Educator; Referring Provider Registered Nurse Diabetes Educator; Visit Provider Registered Nurse Diabetes Educator
DX: D35.2 Benign neoplasm of pituitary gland (principal); E23.6 Other disorders of pituitary gland; R79.89 Other specified abnormal findings of blood chemistry
CPT/HCPCS: 70553; A9579